=== PATIENT | male | born 1995 | race Two or more races ===

== ENCOUNTER 2022-02-04 05:30 | Day surgery (SDC) | payer OTHER ==
[2022-01-31 10:03] VITALS: BMI 26.3
[2022-02-04] MEDS ORDERED: KETAMINE HCL 200 MG/20 ML VIAL ONE (13:53)
[2022-02-04] MEDS ORDERED: PROPOFOL 60 ML ONE (13:53)
[2022-02-04] MEDS ORDERED: ONDANSETRON 4 MG/2 ML VIAL IVPUSH PRN (14:07)
[2022-02-04] MEDS ORDERED: ACETAMINOPHEN 325 MG TABLET (FP) PO PRN (14:07)
[2022-02-04] MEDS ORDERED: LACTATED RINGERS SOLUTION 1,000 ML IV SCH (14:15)
[2022-02-04] MEDS ORDERED: MIDAZOLAM HCL 2 MG/2 ML SINGLE DOSE VIAL ONE (14:25)
[2022-02-04] MEDS ORDERED: BUPIVACAINE HCL/PF 0.25% (2.5MG/ML) 10 ML VIAL ONE ×2 (15:13→16:39)
[2022-02-04] MEDS ORDERED: LIDOCAINE 1%/EPI 1:100000 (20 ML MULTI DOSE VIAL) ONE ×2 (15:13→16:39)
[2022-02-04] MEDS ORDERED: ceFAZolin SODIUM 1 GM VIAL ONE ×2 (15:15)
[2022-02-04] MEDS ORDERED: ceFAZolin SODIUM 1 GM VIAL IVPB ONE (15:16)
[2022-02-04] MEDS ORDERED: BUPIVACAINE HCL/PF 0.25% (2.5MG/ML) 10 ML VIAL IJ ONE ×3 (15:20)
[2022-02-04] MEDS ORDERED: LIDOCAINE 1%/EPI 1:100000 (20 ML MULTI DOSE VIAL) IJ ONE ×3 (15:20)
[2022-02-04] MEDS ORDERED: PROPOFOL 20 ML ONE ×2 (15:35→16:16)
[2022-02-04] MEDS ORDERED: BACITRACIN 15 GM TUBE TOPICAL OINTMENT TP ONE (16:19)
[2022-02-04 17:50] VITALS: RESP 18
[2022-02-04 18:13] VITALS: BP 114/73; PULSE 73; TEMP 97.8
== END 2022-02-04 18:30 | disposition home or self-care (01) ==
LOC: JASU-SURG 05:30
PROVIDERS: ATTEND Plastic Surgery
PROC: 0HBCXZZ Excision of Left Upper Arm Skin, External Approach (ICD-10-PCS; principal; 2022-02-04 14:00)
DX: L81.3 Cafe au lait spots (principal)
CPT/HCPCS: 87070; 87186; 87205; 88305-TC; 94760